=== PATIENT | male | born 1975 | race Two or more races ===

== ENCOUNTER 2023-12-09 09:57 | Inpatient (IN) | payer MEDICAID, BC ==
[~2023-12-09] VITALS: Ht 177.8 cm; Wt 91.7 kg
[2023-12-09] MEDS: SODIUM CHLORIDE 0.9% 1,000 ML IV ONE ×2 (10:30→23:47)
[2023-12-09] MEDS: SODIUM CHLORIDE 0.9% 500 ML IVB ONE (10:30)
[2023-12-09 11:01] LABS: Hematocrit 26.7 % (41.0-53.0); Hemoglobin 8.8 g/dL (13.5-17.5); Mean Corpuscular Hemoglobin 32.3 pg (28.0-32.0); Mean Corpuscular Hgb Conc. 32.9 g/dL (32.0-36.0); Mean Corpuscular Volume 98.2 fL (80.0-100.0); Red Blood Cells 2.72 10^6/uL (4.5-5.90); White Blood Cell 2.8 10^3/uL (4.4-10.8)
[2023-12-09 11:05] LABS: Red Cell Distribution Width 22.7 % (11.8-14.3)
[2023-12-09 11:06] LABS: Basophils % (manual) 0 (0.0-2.0); Blast Cells 0; Metamyelocytes % 0; Myelocytes % 0; Promyelocytes % 0
[2023-12-09 11:10] LABS: Albumin 2.7 g/dL (3.2-4.8); INR 1.92 (0.9-1.15); Partial Thromboplastin Time 38.2 SEC (24.5-34.5); Prothrombin Time 19.3 sec (9.3-11.8)
[2023-12-09 11:11] LABS: Bilirubin, Total 10.2 mg/dL (0.2-1.0); Total Protein 6.2 g/dL (5.7-8.2)
[2023-12-09 11:13] LABS: Alanine Aminotransferase 31 U/L (7-40); Alkaline Phosphatase 140 U/L (46-116); Anion Gap 6 (5-15); Aspartate Aminotransferase 56 U/L (13-40); Blood Urea Nitrogen 8 mg/dL (9-23); Calcium 7.6 mg/dL (8.5-10.1); Carbon Dioxide 26 mmol/L (20-30); Chloride 104 mmol/L (98-107); Glucose 115 mg/dL (74-106); Potassium 2.9 mmol/L (3.5-5.1); Sodium 136 mmol/L (136-145)
[2023-12-09 11:18] LABS: Band Neutrophils % (manual) 3; Eosinophils % (manual) 5 (0-7); Lymphocytes % (manual) 21 (10.0-50.0); Monocytes % (manual) 21 (0-12); Reactive Lymphocytes 1
[2023-12-09 11:19] LABS: Anisocytosis Slight; Platelet Estimate Decreased; Polychromasia Slight; Tear Drop Cells FEW
[2023-12-09] MEDS: IOHEXOL 300 MG/ML 100ML BOTTLE IJ ONE (12:06)
[2023-12-09 12:16] LABS: Lipase 126 U/L (12-53); Magnesium 1.8 mg/dL (1.6-2.6)
[2023-12-09] MEDS ORDERED: ONDANSETRON HCL 4 MG/2 ML VIAL IV PRN (18:00)
[2023-12-09] MEDS ORDERED: DOCUSATE SOD 100 MG CAP PO PRN (18:00)
[2023-12-09 19:18] LABS: Chloride 105 mmol/L (98-107); Potassium 3.3 mmol/L (3.5-5.1); Sodium 136 mmol/L (136-145)
[2023-12-09 19:19] LABS: Anion Gap 5 (5-15); Carbon Dioxide 26 mmol/L (20-30)
[2023-12-09 19:20] LABS: Calcium 7.6 mg/dL (8.5-10.1)
[2023-12-09 19:25] LABS: Blood Urea Nitrogen 9 mg/dL (9-23); Glucose 105 mg/dL (74-106)
[2023-12-09 19:29] LABS: BUN/Creatinine Ratio 9.5 (10.0-20.0)
[2023-12-09] MEDS: POTASSIUM EFFERVESENT TAB 25 MEQ PO ONE ×2 (20:49→21:16)
[2023-12-09] MEDS: LACTULOSE 20Gm/30ML SOLN PO SCH (20:49)
[2023-12-09] MEDS: LACTULOSE 20Gm/30ML SOLN PO ONE (21:16)
[2023-12-09] MEDS: cefTRIAXone 1GM/50ML D5W 50 ML IV ONE (21:17)
[2023-12-09] MEDS: metroNIDAZOLE 500MG/100ML 100 ML IV SCH (21:24)
[2023-12-09] MEDS: SODIUM CHLOR 0.9% PF (SALINE LOCK) 10ML VIAL/SYR IV SCH (22:15)
[2023-12-09 23:30] VITALS: PULSE 79; RESP 12; O2SAT 98
[2023-12-09] MEDS: ALBUMIN 5% 250 ML IV ONE (23:47)
[2023-12-10 02:58] LABS: Urine Bacteria NONE SEEN /hpf (None Seen); Urine Blood Negative /uL (Negative); Urine Clarity Clear (Clear); Urine Color Yellow (Yellow); Urine Protein, UAD TRACE (Negative); Urine Specific Gravity 1.043 (1.001-1.035); Urine WBC 1 /hpf (0 - 3); Urine pH 6.5 (5.0-8.0)
[2023-12-10] MEDS ORDERED: dilTIAZem 25 MG/5 ML VIAL IV ONE (04:55)
[2023-12-10 09:00] VITALS: PULSE 84; RESP 15; O2SAT 100
[2023-12-10 11:15] VITALS: BP 104/70; PULSE 84; RESP 18; TEMP 98.4; O2SAT 100
[2023-12-10] MEDS: PANTOPRAZOLE 40 MG TAB PO SCH (13:57)
[2023-12-10] MEDS: SPIRONOLACTONE 25 MG TAB PO SCH (13:57)
[2023-12-10] MEDS: cefTRIAXone 1GM/50ML D5W 50 ML IV SCH (13:58)
[2023-12-10 17:00] VITALS: BP 97/55; PULSE 85; RESP 18; TEMP 97.9; O2SAT 96
[2023-12-10 20:00] VITALS: PULSE 90; PULSE 92; RESP 18; O2SAT 100
[2023-12-10] MEDS: GABAPENTIN 300 MG CAP PO SCH (21:35)
[2023-12-10 22:00] VITALS: BP 105/65; PULSE 92; RESP 18; TEMP 97.9; O2SAT 100
[2023-12-11] VITALS (7 sets, daily range): BP systolic 97–106; BP diastolic 48–58; PULSE 90–116; RESP 15–20; TEMP 98.1–99.2; O2SAT 94–100
[2023-12-11] MEDS: POTASSIUM CHL 20MEQ/100ML 100 ML IV SCH (12:30)
[2023-12-11] MEDS: ACETAMINOPHEN 325 MG TAB PO PRN (21:11)
[2023-12-12] VITALS (7 sets, daily range): BP systolic 99–115; BP diastolic 43–69; PULSE 77–116; RESP 16–20; TEMP 97.9–98.4; O2SAT 98–100
[2023-12-12] MEDS: HYDROcodone-ACET 5/325MG TAB PO PRN (05:05)
[2023-12-12] MEDS: FUROSEMIDE 40 MG/4 ML VIAL IV SCH (14:09)
[2023-12-13] VITALS (7 sets, daily range): BP systolic 103–133; BP diastolic 52–58; PULSE 89–103; RESP 16–21; TEMP 97.7–98.9; O2SAT 98–100
[2023-12-13 08:02] LABS: Chloride 101 mmol/L (98-107); Potassium 4.1 mmol/L (3.5-5.1); Sodium 132 mmol/L (136-145)
[2023-12-13 08:03] LABS: Anion Gap 5 (5-15); Carbon Dioxide 26 mmol/L (20-30)
[2023-12-13 08:04] LABS: Calcium 8.3 mg/dL (8.5-10.1)
[2023-12-13 08:08] LABS: BUN/Creatinine Ratio 8.9 (10.0-20.0); Blood Urea Nitrogen 8 mg/dL (9-23); Glucose 96 mg/dL (74-106)
[2023-12-13 08:21] LABS: Hemoglobin 7.8 g/dL (13.5-17.5); White Blood Cell 2.6 10^3/uL (4.4-10.8)
[2023-12-13 08:23] LABS: Hematocrit 24.6 % (41.0-53.0); Mean Corpuscular Hemoglobin 31.5 pg (28.0-32.0); Mean Corpuscular Hgb Conc. 31.7 g/dL (32.0-36.0); Mean Corpuscular Volume 99.4 fL (80.0-100.0); Red Blood Cells 2.48 10^6/uL (4.5-5.90)
[2023-12-13 08:29] LABS: Red Cell Distribution Width 22.5 % (11.8-14.3)
[2023-12-13 08:31] LABS: Basophils % (manual) 0 (0.0-2.0); Blast Cells 0; Metamyelocytes % 0; Myelocytes % 0; Promyelocytes % 0; Reactive Lymphocytes 0
[2023-12-13 08:48] LABS: Band Neutrophils % (manual) 1; Eosinophils % (manual) 2 (0-7); Lymphocytes % (manual) 28 (10.0-50.0); Monocytes % (manual) 17 (0-12); Platelet Estimate Decreased
[2023-12-13] MEDS: SPIRONOLACTONE 25 MG TAB PO SCH (23:26)
[2023-12-14] VITALS (7 sets, daily range): BP systolic 101–134; BP diastolic 44–71; PULSE 63–112; RESP 15–20; TEMP 98–98.3; O2SAT 94–100
[2023-12-15 05:00] VITALS: BP 107/52; PULSE 92; RESP 16; TEMP 98; O2SAT 99
[2023-12-15 09:00] VITALS: BP 110/65; PULSE 97; RESP 16; RESP 99; TEMP 98.6; O2SAT 94
[2023-12-15 11:05] LABS: Chloride 99 mmol/L (98-107); Potassium 4.5 mmol/L (3.5-5.1); Sodium 131 mmol/L (136-145)
[2023-12-15 11:06] LABS: Anion Gap 6 (5-15); Calcium 8.2 mg/dL (8.5-10.1); Carbon Dioxide 26 mmol/L (20-30)
[2023-12-15 11:08] LABS: Hemoglobin 7.8 g/dL (13.5-17.5)
[2023-12-15 11:10] LABS: Hematocrit 23.8 % (41.0-53.0); Mean Corpuscular Hemoglobin 32.9 pg (28.0-32.0); Mean Corpuscular Hgb Conc. 32.9 g/dL (32.0-36.0); Mean Corpuscular Volume 100.1 fL (80.0-100.0); Red Blood Cells 2.38 10^6/uL (4.5-5.90); White Blood Cell 2.7 10^3/uL (4.4-10.8)
[2023-12-15 11:11] LABS: BUN/Creatinine Ratio 19.3 (10.0-20.0); Blood Urea Nitrogen 17 mg/dL (9-23); Glucose 105 mg/dL (74-106)
[2023-12-15 11:12] LABS: Red Cell Distribution Width 23.9 % (11.8-14.3)
[2023-12-15 11:15] LABS: Blast Cells 0; Metamyelocytes % 0; Myelocytes % 0; Promyelocytes % 0; Reactive Lymphocytes 0
[2023-12-15 12:57] LABS: Band Neutrophils % (manual) 2; Basophils % (manual) 5 (0.0-2.0); Eosinophils % (manual) 2 (0-7); Lymphocytes % (manual) 26 (10.0-50.0); Monocytes % (manual) 20 (0-12)
[2023-12-15 12:58] LABS: Platelet Estimate Decreased
[2023-12-15 13:00] VITALS: BP 112/64; PULSE 87; RESP 16; TEMP 98.1; O2SAT 98
[2023-12-15] MEDS: ALBUMIN 5% 50 ML IV ONE (13:43)
[2023-12-15 17:00] VITALS: BP 98/56; PULSE 94; RESP 20; TEMP 98.6; O2SAT 99
[2023-12-15 20:00] VITALS: PULSE 98; RESP 17; O2SAT 97
[2023-12-15 22:00] VITALS: BP 101/61; PULSE 98; RESP 17; TEMP 98.2; O2SAT 97
[2023-12-15 22:44] LABS: Mean Corpuscular Hemoglobin 32.1 pg (28.0-32.0); White Blood Cell 3.2 10^3/uL (4.4-10.8)
[2023-12-15 22:45] LABS: Hematocrit 23.5 % (41.0-53.0); Hemoglobin 7.7 g/dL (13.5-17.5); Mean Corpuscular Hgb Conc. 32.9 g/dL (32.0-36.0); Mean Corpuscular Volume 97.6 fL (80.0-100.0); Red Blood Cells 2.41 10^6/uL (4.5-5.90)
[2023-12-15 22:57] LABS: Basophils % (manual) 0 (0.0-2.0); Blast Cells 0; Metamyelocytes % 0; Myelocytes % 0; Promyelocytes % 0; Reactive Lymphocytes 0; Red Cell Distribution Width 23.8 % (11.8-14.3)
[2023-12-15 23:03] LABS: Alanine Aminotransferase 20 U/L (7-40); Albumin 2.8 g/dL (3.2-4.8); Alkaline Phosphatase 112 U/L (46-116); Anion Gap 4 (5-15); Aspartate Aminotransferase 49 U/L (13-40); BUN/Creatinine Ratio 16.3 (10.0-20.0); Bilirubin, Total 7.1 mg/dL (0.2-1.0); Blood Urea Nitrogen 16 mg/dL (9-23); Calcium 8.1 mg/dL (8.7-10.4); Carbon Dioxide 28 mmol/L (20-30); Chloride 99 mmol/L (98-107); Glucose 96 mg/dL (74-106); Sodium 131 mmol/L (136-145); Total Protein 6.2 g/dL (5.7-8.2)
[2023-12-16] VITALS (7 sets, daily range): BP systolic 95–132; BP diastolic 43–78; PULSE 80–100; RESP 17–20; TEMP 98.1–100.4; O2SAT 94–100
[2023-12-16 01:14] LABS: Band Neutrophils % (manual) 1; Eosinophils % (manual) 5 (0-7); Lymphocytes % (manual) 9 (10.0-50.0); Monocytes % (manual) 19 (0-12)
[2023-12-16 01:15] LABS: Anisocytosis Slight; Ovalocytes FEW; Platelet Estimate Decreased; Target Cell FEW
[2023-12-16 01:31] LABS: Urine Bacteria NONE SEEN /hpf (None Seen); Urine Blood Negative /uL (Negative); Urine Clarity Clear (Clear); Urine Color Yellow (Yellow); Urine Protein, UAD Negative (Negative); Urine Specific Gravity 1.015 (1.001-1.035); Urine Urobilinogen Normal (Negative); Urine WBC <1 /hpf (0 - 3)
[2023-12-16] MEDS: ALBUMIN 5% 50 ML IV ONE (13:49)
[2023-12-16] MEDS: FUROSEMIDE 40 MG/4 ML VIAL IV ONE (17:48)
[2023-12-17] VITALS (8 sets, daily range): BP systolic 102–138; BP diastolic 50–81; PULSE 79–104; RESP 18–21; TEMP 97.8–99; O2SAT 91–99
[2023-12-17] MEDS: ALBUMIN 5% 50 ML IV ONE (10:30)
[2023-12-17 11:12] LABS: Eosinophils # (auto) 0.1 10 ^3/uL (0-0.8); Hemoglobin 7.4 g/dL (13.5-17.5); Lymphocytes # (auto) 0.4 10 ^3/uL (0.4-5.4); Monocytes # (auto) 0.9 10 ^3/uL (0-1.3); Neutrophils # (auto) 1.6 10 ^3/uL (1.6-8.6)
[2023-12-17 11:14] LABS: Basophils # (auto) 0 10 ^3/uL (0-0.2); Basophils % (auto) 1.3 % (0.0-2.0); Chloride 103 mmol/L (98-107); Eosinophils % (auto) 2.1 % (0.0-7.0); Hematocrit 22.7 % (41.0-53.0); Lymphocytes % (auto) 14.2 % (10.0-50.0); Mean Corpuscular Hgb Conc. 32.5 g/dL (32.0-36.0); Mean Corpuscular Volume 98.6 fL (80.0-100.0); Neutrophils % (auto) 53.6 % (37.0-80.0); Red Blood Cells 2.31 10^6/uL (4.5-5.90); Sodium 135 mmol/L (136-145)
[2023-12-17 11:15] LABS: Anion Gap 5 (5-15); Carbon Dioxide 27 mmol/L (20-30)
[2023-12-17 11:20] LABS: BUN/Creatinine Ratio 16.7 (10.0-20.0); Blood Urea Nitrogen 16 mg/dL (9-23); Glucose 85 mg/dL (74-106)
[2023-12-17 11:28] LABS: Red Cell Distribution Width 24.6 % (11.8-14.3)
[2023-12-17 11:29] LABS: Monocytes % (auto) 28.8 % (0.0-12.0)
[2023-12-17] MEDS: metroNIDAZOLE 500 MG TAB PO SCH (14:59)
[2023-12-18] VITALS (8 sets, daily range): BP systolic 93–122; BP diastolic 50–76; PULSE 76–97; RESP 19–22; TEMP 97.8–98.3; O2SAT 91–100
[2023-12-18] MEDS ORDERED: ALBUMIN 5% 50 ML IV ONE (12:45)
[2023-12-18] MEDS: ALBUMIN 25% 100 ML IV ONE (15:20)
[2023-12-18] MEDS: HYDROcodone-ACET 5/325MG TAB PO PRN (21:39)
[2023-12-19 05:00] VITALS: BP 97/46; PULSE 83; RESP 16; TEMP 98.3; O2SAT 95
[2023-12-19 08:00] VITALS: PULSE 84; RESP 16; O2SAT 100
[2023-12-19 09:00] VITALS: BP 110/54; PULSE 84; RESP 18; TEMP 98.1; O2SAT 97
[2023-12-19] MEDS ORDERED: FURO1TAB31 PO (11:38)
[2023-12-19] MEDS ORDERED: GABA-1250 PO (11:44)
[2023-12-19] MEDS ORDERED: HYDR-4902 PO (11:44)
[2023-12-19] MEDS ORDERED: SPIR50TA2 PO (11:47)
[2023-12-19 13:00] VITALS: BP 96/55; PULSE 84; RESP 18; TEMP 98.1; O2SAT 99
[2023-12-19 14:22] VITALS: BP 110/54; PULSE 84; RESP 16; TEMP 98.1; O2SAT 97
== END 2023-12-19 15:55 | disposition home or self-care (01) ==
LOC: ER 09:57 → TELE 18:01 → TELE-WESTW 12-10 11:10 → WEST WING 12-13 12:41
PROVIDERS: ADMIT Internal Medicine; ATTEND Internal Medicine
DX: K80.11 Calculus of gallbladder with chronic cholecystitis with obstruction (principal); I50.23 Acute on chronic systolic (congestive) heart failure; K76.82 Hepatic encephalopathy; E43 Unspecified severe protein-calorie malnutrition; N30.20 Other chronic cystitis without hematuria; F10.10 Alcohol abuse, uncomplicated; I49.9 Cardiac arrhythmia, unspecified; D63.8 Anemia in other chronic diseases classified elsewhere; E87.6 Hypokalemia; K70.31 Alcoholic cirrhosis of liver with ascites; G62.1 Alcoholic polyneuropathy; Z68.29 Body mass index [BMI] 29.0-29.9, adult
CPT/HCPCS: 36415; 71045; 74177; 78226; 80048; 80053; 81001; 82140; 82962; 83690; 83735; 85007; 85025; 85027; 85610; 85730; 87040; 87086; 93005; 93970; 99291; G0378; J3480; J3490; P9047